=== PATIENT | female | born 1985 | race Caucasian/White ===

== ENCOUNTER 2018-07-25 05:00 | Inpatient (IN) | payer MEDICAID ==
[2018-07-25 06:50] LABS: ADD UMIC YES; UR ASCORBIC ACID NEGATIVE (NEGATIVE); UR BILIRUBIN (Dip) NEGATIVE (NEGATIVE); UR BLOOD (Dip) 2+ mg/dL (NEGATIVE); UR CLARITY CLEAR (CLEAR); UR COLOR STRAW (YELLOW); UR GLUCOSE (Dip) NEGATIVE (NEGATIVE); UR KETONES (Dip) NEGATIVE (NEGATIVE); UR LEUKOCYTE ESTERASE (Dip) NEGATIVE Leu/ul (NEGATIVE); UR NITRITE (Dip) NEGATIVE (NEGATIVE); UR RBC 1 /HPF (0-5); UR SPECIFIC GRAVITY (Dip) 1.003 (1.003-1.030); UR TOTAL PROTEIN (Dip) NEGATIVE (NEGATIVE); UR UROBILINOGEN (Dip) NEGATIVE (NEGATIVE); UR WBC 0 /HPF (0-5)
[2018-07-25 07:06] LABS: GLUCOSE 79 mg/dl (70-220)
[2018-07-25 07:43] LABS: HEMOGLOBIN A1C 5.2 % (0-5.9)
[2018-07-25] MEDS ORDERED: MISOPROSTOL 200 MCG TAB PR (09:30)
[2018-07-25] MEDS ORDERED: OXYTOCIN 30 UNITS/LR 500 ML IV (09:30)
[2018-07-25] MEDS ORDERED: LIDOCAINE 1% (MPF) 30 ML INJ INJ (09:30)
[2018-07-25] MEDS ORDERED: METHYLERGONOVINE 0.2 MG INJ IM (09:30)
[2018-07-25] MEDS ORDERED: BUTORPHANOL 1 MG INJ IV (09:30)
[2018-07-25] MEDS ORDERED: BUTORPHANOL 2 MG INJ IV (09:30)
[2018-07-25] MEDS ORDERED: CARBOPROST 250 MCG INJ IM (09:30)
[2018-07-25] MEDS: LACTATED RINGER'S 1,000 ML IV ×3 (09:48→21:35)
[2018-07-25 10:00] LABS: ADD MAN DIFF? NO
[2018-07-25 10:09] LABS: BASOPHILS % 0.3 % (0.0-2.0); EOSINOPHILS # 0.1 10^3/ul (0.0-0.5); EOSINOPHILS % 1.1 % (0.0-7.0); HEMATOCRIT 29.9 % (37.0-47.0); HEMOGLOBIN 9.4 g/dl (12.0-16.0); LYMPHOCYTES # 1.5 10^3/ul (0.8-2.9); LYMPHOCYTES % 23.4 % (15.0-51.0); MEAN CORPUSCULAR HEMOGLOBIN 26.9 pg (29.0-33.0); MEAN CORPUSCULAR HGB CONC 31.4 g/dl (32.0-37.0); MEAN CORPUSCULAR VOLUME 85.4 fl (82.0-101.0); MEAN PLATELET VOLUME 11.3 fl (7.4-10.4); MONOCYTE # 0.3 10^3/ul (0.3-0.9); MONOCYTES % 4.6 % (0.0-11.0); NEUTROPHIL # 4.6 10^3/ul (1.6-7.5); NEUTROPHILS % 70.1 % (39.0-77.0); PLATELET COUNT 166 10^3/UL (140-415); RED CELL DISTRIBUTION WIDTH 14.6 % (11.5-14.5)
[2018-07-25 10:09] LABS: WHITE BLOOD COUNT 6.5 10^3/ul (4.8-10.8)
[2018-07-25 10:28] LABS: INR 0.91; PARTIAL THROMBOPLASTIN TIME 30.9 Sec (23.0-35.0); PROTIME 12.4 Sec (11.9-14.9)
[2018-07-25] MEDS: AMPICILLIN 2 GM/NS (PMX) 100 ML IVPB (10:47)
[2018-07-25] MEDS: AMPICILLIN 1 GM/NS (PMX) 50 ML IVPB ×3 (15:15→22:54)
[2018-07-25 15:50] LABS: RAPID PLASMA REAGIN NONREACTIVE (NR)
[2018-07-25] MEDS ORDERED: FENTAnyl 2MCG/ML-ROPIV 0.2% 100 ML (20:46)
[2018-07-25] MEDS ORDERED: DIPHENHYDRAMINE 50 MG INJ IV (21:00)
[2018-07-25] MEDS ORDERED: NALOXONE (0.4 MG/ML) INJ IV (21:00)
[2018-07-25] MEDS ORDERED: ONDANSETRON 4 MG INJ IV (21:00)
[2018-07-26] MEDS: AMPICILLIN 1 GM/NS (PMX) 50 ML IVPB ×5 (02:54→16:48)
[2018-07-26] MEDS: FENTAnyl 2MCG/ML-ROPIV 0.2% 100 ML BAG EPI (04:29)
[2018-07-26] MEDS: LACTATED RINGER'S 1,000 ML IV ×2 (04:29→17:01)
[2018-07-26] MEDS: OXYTOCIN 30 UNITS/LR 500 ML IV ×4 (07:26→13:09)
[2018-07-26] MEDS: LACTATED RINGER'S 1,000 ML IV* ×2 (07:41→15:41)
[2018-07-26] MEDS ORDERED: MAGNESIUM HYDROXIDE 30ML CUP PO (08:00)
[2018-07-26] MEDS ORDERED: DIPHENHYDRAMINE 25 MG CAP PO (08:00)
[2018-07-26] MEDS ORDERED: ONDANSETRON 4 MG INJ IV (08:00)
[2018-07-26] MEDS ORDERED: CARBOPROST 250 MCG INJ IM (08:00)
[2018-07-26] MEDS ORDERED: MISOPROSTOL 200 MCG TAB PR (08:00)
[2018-07-26] MEDS ORDERED: SENNA/DOCUSATE NA (8.6MG/50MG) TAB PO (08:00)
[2018-07-26] MEDS ORDERED: DIPHENHYDRAMINE 50 MG INJ IV (08:00)
[2018-07-26] MEDS ORDERED: ONDANSETRON 4 MG TAB PO (08:00)
[2018-07-26] MEDS ORDERED: NA PHOSPHATE/BIPHOS 133 ML ENEMA PR (08:00)
[2018-07-26] MEDS ORDERED: HYDROCODONE/APAP (5/325) TAB PO ×2 (08:00)
[2018-07-26] MEDS ORDERED: OXYTOCIN 30 UNITS/LR 500 ML IV (08:00)
[2018-07-26] MEDS: MINERAL OIL LIGHT 10 ML VIAL TOP (08:26)
[2018-07-26] MEDS: SENNA/DOCUSATE NA (8.6MG/50MG) TAB PO ×2 (09:00→21:27)
[2018-07-26] MEDS: IBUPROFEN 600 MG TAB PO ×2 (13:06→17:34)
[2018-07-27] MEDS: IBUPROFEN 600 MG TAB PO ×4 (00:21→18:10)
[2018-07-27] MEDS: DIBUCAINE 1% 30 GM OINT TOP (00:21)
[2018-07-27] MEDS: WITCH HAZEL/GLYCERIN PAD PR (00:21)
[2018-07-27] MEDS: BENZOCAINE 20% 56 ML SPRAY TOP (00:21)
[2018-07-27] MEDS: LANOLIN HPA 1 PKT TOP (00:22)
[2018-07-27] MEDS: LACTATED RINGER'S 1,000 ML IV ×2 (02:38→09:01)
[2018-07-27] MEDS: LACTATED RINGER'S 1,000 ML IV* ×2 (02:38→07:41)
[2018-07-27 05:19] LABS: ADD MAN DIFF? NO
[2018-07-27 05:31] LABS: BASOPHILS % 0.4 % (0.0-2.0); EOSINOPHILS # 0.1 10^3/ul (0.0-0.5); EOSINOPHILS % 1.9 % (0.0-7.0); HEMATOCRIT 30.1 % (37.0-47.0); HEMOGLOBIN 9.5 g/dl (12.0-16.0); LYMPHOCYTES # 2.3 10^3/ul (0.8-2.9); LYMPHOCYTES % 32.5 % (15.0-51.0); MEAN CORPUSCULAR HEMOGLOBIN 27.1 pg (29.0-33.0); MEAN CORPUSCULAR HGB CONC 31.6 g/dl (32.0-37.0); MEAN CORPUSCULAR VOLUME 85.8 fl (82.0-101.0); MEAN PLATELET VOLUME 10.9 fl (7.4-10.4); MONOCYTE # 0.4 10^3/ul (0.3-0.9); NEUTROPHIL # 4.3 10^3/ul (1.6-7.5); NEUTROPHILS % 59.4 % (39.0-77.0); PLATELET COUNT 172 10^3/UL (140-415); RED BLOOD COUNT 3.51 10^6/ul (4.20-5.40); RED CELL DISTRIBUTION WIDTH 14.7 % (11.5-14.5)
[2018-07-27 05:31] LABS: WHITE BLOOD COUNT 7.2 10^3/ul (4.8-10.8)
[2018-07-27] MEDS: SENNA/DOCUSATE NA (8.6MG/50MG) TAB PO (09:09)
[2018-07-28] MEDS: IBUPROFEN 600 MG TAB PO ×3 (00:37→11:55)
[2018-07-28] MEDS: SENNA/DOCUSATE NA (8.6MG/50MG) TAB PO ×2 (00:37→09:58)
[2018-07-28] MEDS: MEASLES,MUMPS,RUBELLA VACCINE INJ SC* (09:00)
[2018-07-28] MEDS: VARICELLA VACCINE LIVE/PF 1,350 UNIT/0.5 ML ML SC* (09:00)
[2018-07-28] MEDS: FERROUS GLUCONATE (EC) 325 MG TAB PO (09:58)
[2018-07-28] MEDS: DIPHTH/TET/ACEL PERTUSS (ADULT) 0.5 ML VIAL IM* (09:59)
== END 2018-07-28 14:30 | disposition home or self-care (01) | DRG 807 ==
LOC: OBT 05:00 → PP1 07-27 19:10 → MS1 07-26 15:12 → L-D 05:00 → OBT 09:10 → L-D 08:45
PROVIDERS: Obstetrics & Gynecology
PROC: 10E0XZZ Delivery of Products of Conception, External Approach (ICD-10-PCS; principal; 2018-07-26)
DX: O99.824 Streptococcus B carrier state complicating childbirth (principal); Z37.0 Single live birth; Z3A.38 38 weeks gestation of pregnancy; Z23 Encounter for immunization
CPT/HCPCS: 76815; 76818; 81001; 82947; 83036; 85025; 85610; 85730; 86592; 86850; 86900; 86901; 90715; 90716